=== PATIENT | male | born 1970 | race Two or more races ===

== ENCOUNTER 2017-09-07 13:58 | Emergency (ER) | payer OTHER ==
[~2017-09-07] VITALS: Ht 170.2 cm; Wt 72.6 kg
[2017-09-07 14:09] VITALS: Ht 170.2 cm; Wt 72.6 kg
[2017-09-07 16:08] VITALS: BP 115/71
== END 2017-09-07 16:08 | disposition home or self-care (01) ==
LOC: ED 13:58
DX: T58.91XA Toxic effect of carbon monoxide from unspecified source, accidental (unintentional), initial encounter (principal); R07.1 Chest pain on breathing; F90.9 Attention-deficit hyperactivity disorder, unspecified type; R20.2 Paresthesia of skin

== ENCOUNTER 2018-02-19 09:14 | Emergency (ER) | payer OTHER ==
[~2018-02-19] VITALS: Ht 170.2 cm; Wt 71.2 kg
[2018-02-19 09:24] VITALS: Ht 170.2 cm; Wt 71.2 kg
[2018-02-19 10:15] VITALS: BP 128/80
== END 2018-02-19 09:50 | disposition home or self-care (01) ==
LOC: ED 09:14
DX: Z00.01 Encounter for general adult medical examination with abnormal findings (principal); R78.89 Finding of other specified substances, not normally found in blood

== ENCOUNTER 2018-03-20 00:01 | Emergency (ER) | payer OTHER ==
[~2018-03-20] VITALS: Ht 175.3 cm; Wt 72.6 kg
[2018-03-20 00:04] VITALS: Ht 175.3 cm; Wt 72.6 kg
[2018-03-20 04:21] VITALS: BP 138/92
== END 2018-03-20 04:21 | disposition home or self-care (01) ==
LOC: ED 00:01
DX: T21.14XA Burn of first degree of lower back, initial encounter (principal); T31.0 Burns involving less than 10% of body surface; F17.210 Nicotine dependence, cigarettes, uncomplicated; I10 Essential (primary) hypertension
CPT/HCPCS: 36600

== ENCOUNTER 2018-04-06 01:54 | Emergency (ER) | payer OTHER ==
[~2018-04-06] VITALS: Ht 175.3 cm; Wt 69.9 kg
[2018-04-06 02:00] VITALS: Ht 175.3 cm; Wt 69.9 kg
[2018-04-06 06:21] VITALS: BP 145/80
== END 2018-04-06 06:21 | disposition home or self-care (01) ==
LOC: ED 01:54
DX: S02.32XA Fracture of orbital floor, left side, initial encounter for closed fracture (principal); I10 Essential (primary) hypertension; F17.210 Nicotine dependence, cigarettes, uncomplicated; S00.81XA Abrasion of other part of head, initial encounter; S60.511A Abrasion of right hand, initial encounter; S60.811A Abrasion of right wrist, initial encounter; Z71.6 Tobacco abuse counseling; Y04.0XXA Assault by unarmed brawl or fight, initial encounter; Y93.89 Activity, other specified
CPT/HCPCS: 90715; 99406

== ENCOUNTER 2019-01-21 10:01 | Emergency (ER) | payer OTHER ==
[~2019-01-21] VITALS: Ht 165.1 cm; Wt 80.7 kg
[2019-01-21 10:05] VITALS: Ht 165.1 cm; Wt 80.7 kg
[2019-01-21 12:00] VITALS: BP 152/96
== END 2019-01-21 12:00 | disposition home or self-care (01) ==
LOC: ED 10:01
DX: S61.412A Laceration without foreign body of left hand, initial encounter (principal); W26.9XXA Contact with unspecified sharp object(s), initial encounter; Y93.89 Activity, other specified; Y92.89 Other specified places as the place of occurrence of the external cause; Y99.8 Other external cause status; I10 Essential (primary) hypertension; F98.8 Other specified behavioral and emotional disorders with onset usually occurring in childhood and adolescence
CPT/HCPCS: 90715; J0690; J2001; Q0092

== ENCOUNTER 2019-05-20 00:14 | Emergency (ER) | payer OTHER ==
[~2019-05-20] VITALS: Ht 175.3 cm; Wt 71.2 kg
[2019-05-20 00:23] VITALS: BP 136/93; Ht 175.3 cm; Wt 71.2 kg
== END 2019-05-20 01:34 | disposition home or self-care (01) ==
LOC: ED 00:14
DX: S80.12XA Contusion of left lower leg, initial encounter (principal); S80.11XA Contusion of right lower leg, initial encounter; I10 Essential (primary) hypertension; V03.92XA Pedestrian on skateboard injured in collision with car, pick-up truck or van, unspecified whether traffic or nontraffic accident, initial encounter; Y93.89 Activity, other specified; Y92.488 Other paved roadways as the place of occurrence of the external cause; Y99.8 Other external cause status

== ENCOUNTER 2019-11-20 16:09 | Emergency (ER) | payer OTHER ==
[~2019-11-20] VITALS: Ht 175.3 cm; Wt 75.3 kg
[2019-11-20 16:20] VITALS: BP 131/96; Ht 175.3 cm; Wt 75.3 kg
== END 2019-11-20 16:56 | disposition home or self-care (01) ==
LOC: ED 16:09
DX: M79.631 Pain in right forearm (principal); I10 Essential (primary) hypertension; F15.90 Other stimulant use, unspecified, uncomplicated

== ENCOUNTER 2020-02-05 07:46 | Emergency (ER) | payer OTHER ==
[~2020-02-05] VITALS: Ht 165.1 cm; Wt 76.2 kg
[2020-02-05 08:05] VITALS: Ht 165.1 cm; Wt 76.2 kg
[2020-02-05 08:58] VITALS: BP 138/92
== END 2020-02-05 08:58 | disposition home or self-care (01) ==
LOC: ED 07:46
DX: R06.00 Dyspnea, unspecified (principal); F17.210 Nicotine dependence, cigarettes, uncomplicated; I10 Essential (primary) hypertension; Z11.3 Encounter for screening for infections with a predominantly sexual mode of transmission
CPT/HCPCS: 87491; 87591; 99406

== ENCOUNTER 2020-06-16 19:39 | Emergency (ER) | payer SELFPAY ==
[~2020-06-16] VITALS: Ht 175.3 cm; Wt 78.0 kg
[2020-06-16 19:54] VITALS: Ht 175.3 cm; Wt 78.0 kg
[2020-06-16 21:24] VITALS: BP 151/98
== END 2020-06-16 21:24 | disposition home or self-care (01) ==
LOC: ED 19:39
DX: S62.101A Fracture of unspecified carpal bone, right wrist, initial encounter for closed fracture (principal); I10 Essential (primary) hypertension; W18.30XA Fall on same level, unspecified, initial encounter; Y93.89 Activity, other specified; Y92.89 Other specified places as the place of occurrence of the external cause; Y99.8 Other external cause status
CPT/HCPCS: Q0092